=== PATIENT | female | born 1995 | race African-American/Black ===

== ENCOUNTER 2016-11-13 18:21 | Emergency (ER) | payer OTHER ==
[2016-11-13 18:30] VITALS: BP 113/58; BMI 18.2
[2016-11-13 19:41] LABS: BILIRUBIN,URINE NEGATIVE (NEGATIVE); BLOOD/HEMOGLOBIN,URINE NEGATIVE (NEGATIVE); GLUCOSE, URINE NEGATIVE (NEGATIVE); KETONES,URINE NEGATIVE (NEGATIVE); LEUKOCYTE ESTERASE ,URINE NEGATIVE (NEGATIVE); NITRITES,URINE NEGATIVE (NEGATIVE); PROTEIN,URINE NEGATIVE (NEGATIVE); UROBILINOGEN,URINE NORMAL (NORMAL)
--- NOTE | 2016-11-13 19:52 | DR.GENAD ---
HPI - PCP Primary Care Physician: marcelo - Complaint/Symptoms Chief Complaint:: pt states" i started a new job and i have too pull and bendover alot I don't hurt at work but when i wake up in the morning i'm hurting bad. 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 Past Surgical History Comment: DNC - Family History History of Family Medical Conditions: No - Social History Does any household member use tobacco: No Alcohol Use: None Do you use any recreational Drugs:: No Lives With: Family Lives Where: Home - infectious screening In the last 2 months have you had wt loss of >10#?: NO Have you had fever, night sweats or hemotysis?: No Have you traveled outside the country in the last 6 months?: No Isolation: Standard PE - Vital Signs Vitals: Temperature 98.6 F Pulse Rate 87 Respiratory Rate 18 Blood Pressure [Left Arm] 101/47 Blood Pressure 113/58 O2 Sat by Pulse Oximetry 100 - Discharge Plan Condition: Stable - Follow ups/Referrals Follow ups/Referrals: ROMERO DE LA GARZA [Primary Care Provider] - 3 days - Instructions
[2016-11-13 19:57] LABS: APPEARANCE,URINE CLEAR (CLEAR); BACTERIA,URINE TRACE /HPF (NEGATIVE); COLOR,URINE YELLOW (YELLOW); RBC,URINE 0-2 /HPF (NEGATIVE); SQUAMOUS EPITHELIAL CELL,UR RARE /HPF (NEGATIVE)
--- NOTE | 2016-11-13 21:22 | US ---
HISTORY: , abdominal pain and spotting Study: Limited OB ultrasound Comparison: None Technique: Multiple grayscale and color flow Doppler images of the pelvis were obtained with focused evaluation of the fetus. Findings: A single intrauterine gestational sac is identified. Within the gestational sac there is a single fe tus present. [place]-rump length measures 5.6 cm, corresponding to an estimated gestational age of 12 weeks 1 day. heart tones are detected at 159 beats per min. presentation is vertex. A po sterior placenta is identified. Biparietal diameter measures 1.6 cm, corresponding to an estimated g estational age of 12 weeks 2 days. Head circumference measures 6.6 cm, corresponding to an estimated gestational age of 12 weeks 4 days. Abdominal circumference measures 5.4 cm, corresponding to an es timated gestational age of 12 weeks 2 days. Femur length measures 0.76 cm, corresponding to an estim ated gestational age of 12 weeks 2 days. IMPRESSION: 1. Single viable intrauterine with estimated gestational age of 12 weeks 1 day and h eart tones detected at 159 beats per min. Reported By:
== END 2016-11-13 21:15 | disposition left against medical advice (07) ==
LOC: ER 18:21
DX: R10.84 Generalized abdominal pain (principal); O26.859 Spotting complicating pregnancy, unspecified trimester; Z3A.00 Weeks of gestation of pregnancy not specified
CPT/HCPCS: 36415; 76801; 81001; 84702; 99282; 99284

== ENCOUNTER 2017-12-07 18:31 | Emergency (ER) | payer MEDICAID, OTHER ==
[2017-12-07 18:39] VITALS: BP 107/56; BMI 23.1
[2017-12-07] MEDS ORDERED: ADACEL TDaP IM ONE ×2 (19:20→19:23)
--- NOTE | 2017-12-07 19:20 | DR.LACERAT ---
HPI - Time Seen Time seen: 17:15 - Primary Care Physician Primary Care Physician: [email or web address] - HPI Comment HPI Comment: TD NOT UTD. - Complaints Chief Complaint Doctors Comments: CUT RT HAND WITH KNIFE BEFORE COMING TO ED. Chief Complaint:: 2cm lac to right hand Self Treatment fo Chief Complaint: patient cleaned with peroxide and cold water - Reviewed Nurses Notes Reviewed: Yes - Source History Provided: Patient - Mode of Arrival Mode of Arrival: Ambulatory - Location Right Hand Wound's Depth, Shape: Linear Laceration Explored: Clean - Timing Onset of Chief Complaint: 12/07/17 - Context Mechanism: Knife Tetanus Vaccination: No - Severity Pain Severity: None Bleeding:: Controlled - Associated Signs and Symptoms Associated Signs and Symptoms: None PMH - PMH Past Medical History: No Past Medical History: Anemia Past Surgical History: No 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 - Family History History of Family Medical Conditions: No - Social History Does patient currently use any type of tobacco product: Yes Have you used tobacco products in the last 12 months: Yes Type of Tobacco Use: Cigars Does any household member use tobacco: No Alcohol Use: None Do you use any recreational Drugs:: No Lives With: Family Lives Where: Home - infectious screening In the last 2 months have you had wt loss of >10#?: NO Have you had fever, night sweats or hemotysis?: No Have you traveled outside the country in the last 6 months?: No Isolation: Standard ROS - Review of Systems Constitutional: No Symptoms Reported Eyes: No Symptoms Reported ENTM: No Symptoms Reported Respiratoy: No Symptoms Reported Cardiovascular: No Symptoms Reported Gastrointestinal/Abdominal: No Symptoms Reported Genitourinary: No Symptoms Reported Neurological: No Symptoms Reported Musculoskeletal: No Symptoms Reported Integumentary: Other (2CM LAC RT HAND.) Hematologic/Lymphatic: No Symptoms Reported Endocrine: No Symptoms Reported All Other Systems: Reviewed and Negative PE - Vital Signs Vitals: Temperature 98.2 F Pulse Rate 91 Respiratory Rate 14 Blood Pressure [Left Arm] 101/47 Blood Pressure 107/56 O2 Sat by Pulse Oximetry 99 - General Limitations: No Limitations General Appearance: Alert - Head Head Exam: Normal Inspection - Eyes Eye exam: Normal Appearance - ENT ENT Exam: Normal External Ear Exam - Neck Neck Exam: Trachea Midline - Chest Chest Inspection: Symmetric Chest Wall Rise - Respiratory Respiratory Exam: Normal Lung Sounds Bilat Respiratory Exam: Bilateral Clear to Auscultation - Cardiovascular Cardiovascular Exam: Regular Rate, Normal Rhythm, Normal Heart Sounds - Abdominal Exam Abdominal Exam: Normal Inspection - Extremities Extremities Exam: Tenderness (2CM LAC LATERAL RT HAND.) - Back Back Exam: Normal Inspection - Neurologic Neurological Exam: Alert, Oriented X3 - Psychiatric Psychiatric Exam: Normal Affect, Normal Mood - Skin Skin Exam: Erythema Type of Lesion: Laceration (2CM LAC LATERAL RT HAND.) MDM - Differential Diagnosis Differential Diagnosis: Contusion, Laceration Course - Treatment Treatment: SEE ORDERS. - Education/Counseling Education/Counseling: Patient, Education Educated On: Diagnosis, Needs for Follow Up Procedures - Laceration/Wound Repair Right Hand Wound Length (cm): 2 Wound's Depth, Shape: Linear Wound Explored: clean Betadine Prep?: Yes Anesthesia: 1% Lidocaine Wound Repaired With: sutures Suture Size/Type: 4:0, [place] Number of Sutures: 6 Layer Closure?: No Sterile Dressing Applied?: Yes Splint Applied?: No Sling Applied?: No - Diagnosis Discharge Problem: Laceration Laceration of right hand Qualifiers: Encounter type: initial encounter Foreign body presence: without foreign body Qualified Code(s): S61.411A - Laceration without foreign body of right hand, initial encounter - Discharge Plan Condition: Stable - Follow ups/Referrals Follow ups/Referrals: NFD,None [Primary Care Provider] - 3 days - Instructions Instructions: Laceration Care, Adult, [id number] Additional Instructions: RETURN TO ED IF WORSE. SUTURE OUT IN 7 TO 10 DAYS.
[2017-12-07] MEDS ORDERED: XYLOCAINE 1 % (PLAIN) ONE (19:23)
[2017-12-07] MEDS ORDERED: NEOSPORIN OINT ONE (19:42)
== END 2017-12-07 19:54 | disposition home or self-care (01) ==
LOC: ER 18:46
PROC: 0XQJXZZ Repair Right Hand, External Approach (ICD-10-PCS; principal; 2017-12-07)
DX: S61.411A Laceration without foreign body of right hand, initial encounter (principal); W26.0XXA Contact with knife, initial encounter; Y92.9 Unspecified place or not applicable
CPT/HCPCS: 12001; 90471; 99282; 99283; J2001